=== PATIENT | male | born 1950 | race Caucasian/White ===

== ENCOUNTER 2020-12-24 07:00 | Inpatient (IN) ==
--- NOTE | 2020-12-06 09:38 | PAT Medication Instructions ---
Medication Instructions Date of Service December 06, 2020 Home Medications atorvastatin [Lipitor] 80 mg PO HS cholecalciferol (vitamin D3) 25 mcg (1,000 unit) capsule 1,000 unit PO HS citalopram 40 mg tablet 40 mg PO QAM finasteride 5 mg tablet 5 mg PO QAM multivitamin 1 tab PO HS pantoprazole 40 mg tablet,delayed release 40 mg PO BID sildenafil 100 mg tablet 50 mg PO DAILY PRN tamsulosin 0.4 mg capsule 0.4 mg PO HS oxycodone-acetaminophen 2 tab PO BID PRN DO NOT take the morning of surgery sildenafil 100 mg tablet 50 mg PO DAILY PRN Take morning of surgery With a small sip of water, OTHERWISE NOTHING TO EAT OR DRINK AFTER MIDNIGHT: citalopram 40 mg tablet 40 mg PO QAM finasteride 5 mg tablet 5 mg PO QAM pantoprazole 40 mg tablet,delayed release 40 mg PO BID oxycodone-acetaminophen 2 tab PO BID PRN (okay to take up to 4 hours prior to surgery if needed) Take evening before surgery atorvastatin [Lipitor] 80 mg PO HS cholecalciferol (vitamin D3) 25 mcg (1,000 unit) capsule 1,000 unit PO HS multivitamin 1 tab PO HS pantoprazole 40 mg tablet,delayed release 40 mg PO BID sildenafil 100 mg tablet 50 mg PO DAILY PRN (if needed) tamsulosin 0.4 mg capsule 0.4 mg PO HS oxycodone-acetaminophen 2 tab PO BID PRN (if needed) Other Notes If you have any questions please call us at [phone] or [phone] or [phone] or [phone]
--- NOTE | 2020-12-10 09:28 | Anesthesiology Consultation ---
Date of Service December 10, 2020 Assessment & Plan (1) Encounter for pre-operative examination: - COVID screening: Per assessment on 12/10: Travel screen negative, no known COVID-19 positive contacts or current COVID-19 related symptoms. Patient vaccinated. Surgeon arranging preop COVID testing. Awaiting results. - Possible difficult intubation: d/t decreased cervical extension. Patient with hx of cervical "issues" s/p cervical discectomy Chart Review Chart Review: Acceptable Risk for Surgery (pending preop testing (labs, EKG)) and Patient seen in Pre Admission Testing Teaching & Discussion Pre-Anesthesia Teaching/Discussion Notes: Instructed NPO after midnight before surgery,except medications with 15 cc of water. Medication instructions provided according to the PAT guidelines. History Surgery Operation Date: 12/24/20 07:45 Proposed Procedures p L2-L3 Decompression Fusion, Possible T12-L3, L3-S1 Hardware Removal Spinal Cord Monitoring - Joseph Padilla, DO Height/Weight Height: 5 ft 8 in Weight: 82.7 kg Allergies Allergy/AdvReac Type Severity Reaction Status Date / Time morphine AdvReac Mild Rash, Verified 12/06/20 11:37 itching, hives Medications Home Medications Medication Instructions Recorded Confirmed Last Taken atorvastatin [Lipitor] 80 mg PO HS 05/09/18 12/05/20 04/23/20 17:00 cholecalciferol (vitamin D3) 25 1,000 unit PO HS 04/18/20 12/05/20 04/23/20 17:00 mcg (1,000 unit) capsule citalopram 40 mg tablet 40 mg PO QAM tab 04/18/20 12/05/20 04/24/20 06:30 finasteride 5 mg tablet 5 mg PO QAM 04/18/20 12/05/20 04/23/20 09:00 multivitamin 1 tab PO HS 04/18/20 12/05/20 04/23/20 17:00 pantoprazole 40 mg tablet,delayed 40 mg PO BID tab 04/18/20 12/05/20 04/23/20 18:30 release sildenafil 100 mg tablet 50 mg PO DAILY PRN tab 04/18/20 12/05/20 Unknown tamsulosin 0.4 mg capsule 0.4 mg PO HS 04/18/20 12/05/20 04/23/20 06:30 oxycodone-acetaminophen 2 tab PO BID PRN 12/05/20 12/05/20 Unknown Past Medical History Medical History 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, kidney, acquired DDD (degenerative disc disease) GERD (gastroesophageal reflux disease) controlled Hearing deficit Hyperlipidemia Kidney stones Sciatica Spinal stenosis Exercise / Class Metabolic Activity II 4-5 Yardwork/Stairs/Walk up hill (one FS (no CP, no SOB)) Past Family History Family History Grandfather Prostate cancer Mother Cancer Hypertension Brother Cancer Grandmother (Maternal) Family history of diabetes mellitus Grandfather (Paternal) Family history of esophageal cancer Other No family history of adverse response to anesthesia Past Surgical History Surgical History History of cardiac cath 2016 ([facility]) > no stents History of carpal tunnel surgery of right wrist History of colonoscopy History of colonoscopy with polypectomy History of esophagogastroduodenoscopy (EGD) EGD (04/24/20): MAC at [facility] (hx EGD/dilation) History of lumbar spinal fusion History of open reduction and internal fixation (ORIF) procedure Right wrist (+ hardware) History of repair of right rotator cuff History of tooth extraction Hx of cervical spine surgery Discectomy ("bulging disc") Past Anesthesia History No Hx of Anesthesia Complications and No Family Hx of Anesthesia Complications History of PONV No Hx of PONV and No Hx of Motion Sickness Social History Smoking Status: Former smoker tobacco type: cigarettes Do You Dip or Chew Tobacco: No Smoking End Date: Trying to quit- current 2 cigs/day (tobacco use x 15 years) Hx Alcohol Use: No Hx Substance Use: No Review of Systems Patient denies chest pain, shortness of breath, dyspnea on exertion, fever, chills, cough, wheezing, palpitations. Physical Exam Vital Signs VITALS BP 134/85 P 53 TEMP 97.7 SP02 95%RA RESP 16 PHYSICAL Decreased cervical extension range of motion. Full TMJ range of motion. TMD 3 finger breaths Mallampati Score 3 Dentition: upper full, lower partial denture Lungs: clear throughout to auscultation Cardiac: bradycardia rate, regular rhythm, no murmurs noted Spine: normal Carotid arteries: negative bruit Extremities: no edema Short neck Trimmed timmons Testing Chest X-Ray Date: 12/10/20 FINDINGS: The lungs are clear. Cardiac silhouette is top normal in size. No pleural effusions. No pneumothorax. IMPRESSION: No acute process.
[~2020-12-24 07:00] MED LIST: ACETAMINOPHEN 500 MG TAB PO SCH; CeleBREX 200 MG CAP PO SCH; GABAPENTIN 300 MG CAP PO SCH; SODIUM CHLORIDE 0.9% 1000ML IV SCH; ceFAZolin 2000MG 2,000 MG/15 ML SYR IV SCH
[2020-12-24] MEDS ORDERED: DEXAMETHASONE SOD INJ 4 MG/ML VIAL ONE (08:17)
[2020-12-24] MEDS ORDERED: PROPOFOL IV EMULSION 10 MG/ML 20 ML VIAL IV ONE (08:17)
[2020-12-24] MEDS ORDERED: ONDANSETRON INJ 2 MG/ML 2 ML VIAL ONE (08:17)
[2020-12-24] MEDS ORDERED: LIDOCAINE 2% 2 ML VIAL/AMP(20MG/ML) INFIL ONE (08:17)
[2020-12-24] MEDS ORDERED: MIDAZOLAM HCL 1 MG/ML 2ML VIAL ONE (08:17)
[2020-12-24] MEDS ORDERED: fentaNYL citrate 100 MCG/2 ML VIAL ONE ×2 (08:18→10:07)
[2020-12-24 08:21] LABS: BUN Creatinine Ratio 17.1 (10-20); Calcium 8.5 mg/dl (8.5-10.1); Creatinine Clr Calc Pharmacy 72.2 ml/min; Est GFR (African American) 87.6 ml/min; Est GFR (Non-African American) 75.5 ml/min; Potassium 3.8 mmol/L (3.5-5.1)
--- NOTE | 2020-12-24 08:42 | History & Physical Bridge Note ---
Date of Service December 24, 2020 History & Physical Bridge Note I have examined the patient, reviewed the History & Physical and in the interval since the performance of the History & Physical I have noted the following changes of clinical significance: no changes noted
--- NOTE | 2020-12-24 08:43 | History & Physical Report ---
Date of Service December 24, 2020 Assessment & Plan (1) Neurogenic claudication due to lumbar spinal stenosis: Plan: L2-L3 decompression fusion, possible T12 L3, L3-S1 hardware removal History of Present Illness Chief Complaint: Back and bilateral leg pain Primary Care Provider: NO PCP This is a 70-year-old male well-known to me the presents with chronic persistent back and bilateral leg pain. Failing since course of nonoperative care is here for surgical invention. Allergies Allergy/AdvReac Type Severity Reaction Status Date / Time morphine AdvReac Mild Rash, Verified 12/24/20 07:27 itching, hives Home Medications Medication Instructions Recorded Confirmed Type atorvastatin 80 mg tablet (Lipitor) 80 mg PO HS 05/09/18 12/24/20 History cholecalciferol (vitamin D3) 25 1,000 unit PO HS 04/18/20 12/24/20 History mcg (1,000 unit) capsule citalopram 40 mg tablet 40 mg PO QAM tab 04/18/20 12/24/20 History finasteride 5 mg tablet 5 mg PO QAM 04/18/20 12/24/20 History multivitamin (Daily Multi-Vitamin) 1 tab PO HS 04/18/20 12/24/20 History pantoprazole 40 mg tablet,delayed 40 mg PO BID tab 04/18/20 12/24/20 History release sildenafil 100 mg tablet 50 mg PO DAILY PRN tab 04/18/20 12/24/20 History tamsulosin 0.4 mg capsule 0.4 mg PO HS 04/18/20 12/24/20 History oxycodone-acetaminophen 5 mg-325 2 tab PO BID PRN 12/05/20 12/24/20 History mg tablet Past Med/Surg History Medical History 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, kidney, acquired DDD (degenerative disc disease) GERD (gastroesophageal reflux disease) controlled Hearing deficit Hyperlipidemia Kidney stones Sciatica Spinal stenosis Surgical History History of cardiac cath 2016 ([facility]) > no stents History of carpal tunnel surgery of right wrist History of colonoscopy History of colonoscopy with polypectomy History of esophagogastroduodenoscopy (EGD) EGD (04/24/20): MAC at [facility] (hx EGD/dilation) History of lumbar spinal fusion History of open reduction and internal fixation (ORIF) procedure Right wrist (+ hardware) History of repair of right rotator cuff History of tooth extraction Hx of cervical spine surgery Discectomy ("bulging disc") Family History Grandfather Prostate cancer Mother Cancer Hypertension Brother Cancer Grandmother (Maternal) Family history of diabetes mellitus Grandfather (Paternal) Family history of esophageal cancer Other No family history of adverse response to anesthesia Social History (Updated 12/05/20 @ 12:38 by Palak Adams RN) Smoking Status: Current every day smoker Smoking End Date: Trying to quit- current 2 cigs/day (tobacco use x 15 years); Second Hand Exposure: Yes ( smokes); Do You Dip or Chew Tobacco: No; Hx Alcohol Use: No Hx Substance Use: No Preferred Language: Kenyan Communication Ability: Effective 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 Beliefs That Will Affect Care: None Current Living Situation: Spouse current occupational status: retired Other Information That Helps Us Care for You: No Feels Safe at Home: Yes Safety Concerns: Feels Safe At This Time Assistive Devices: Contacts, Denture - Upper, Denture - Lower, Glasses and Hearing Aid - Bilateral Assistive Devices Comment: PT WILL WEAR GLASSES DOS Physical Exam Physical Exam: Patient is alert and oriented Heart regular rhythm Lungs clear to auscultation Results & Data ([facility]) Vital Signs (Past 12 Hours) Vital Signs Temp Pulse Resp BP Pulse Ox 12/24/20 07:32 36.7 C 60 20 162/94 H 95
[2020-12-24] MEDS ORDERED: ATROPINE SULFATE 0.1 MG/ML 10ML SYR IV PRN (08:51)
[2020-12-24] MEDS ORDERED: HYDROmorphone INJ 2 MG/ML SYR/VIAL IV PRN (08:51)
[2020-12-24] MEDS ORDERED: ONDANSETRON INJ 2 MG/ML 2 ML VIAL IV PRN ×2 (08:51→13:21)
[2020-12-24] MEDS ORDERED: ePHEDrine sulfate 50 MG/ML AMP IV PRN (08:51)
[2020-12-24] MEDS ORDERED: BUPIVACAINE/EPINEPHRINE 0.5% MPF 1:200,000 30 ML VIAL ONE (09:00)
[2020-12-24] MEDS ORDERED: PHENYLEPHRINE 100MCG/ML 5ML SYR ONE (10:17)
[2020-12-24] MEDS ORDERED: ePHEDrine sulfate 50 MG/ML SYR ONE (10:17)
[2020-12-24] MEDS ORDERED: ROCURONIUM BROMIDE 10 MG/ML 5 ML VIAL IV ONE (10:21)
[2020-12-24] MEDS ORDERED: FLOSEAL HEMOSTATIC MATRIX 10ML TOP ONE (10:23)
[2020-12-24] MEDS ORDERED: GLYCOPYRROLATE 0.2 MG/ML VIAL ONE (11:08)
[2020-12-24] MEDS ORDERED: NEOSTIGMINE METHYLSULFATE 1 MG/ML 10ML VIAL ONE (11:08)
[2020-12-24] MEDS ORDERED: KETOROLAC 30 MG/ML VIAL ONE (11:41)
--- NOTE | 2020-12-24 11:44 | Operative Report ---
Post Operative Report Pre & Post Diagnosis Operation Date: 12/24/20 09:05 Pre-Op Diagnosis: Neurogenic claudication due to lumbar spinal stenosis Post-Op Diagnosis: Neurogenic claudication due to lumbar spinal stenosis I identified the patient and participated in the time-out.: Yes Procedure Operation Date: 12/24/20 09:05 Actual Procedures #1 removal of posterior instrumentation L3. #2 exploration of fusion L3-L4. #3 lumbar decompression bilateral medial facetectomies and foraminotomies L1-2 and L2-3. #4 posterior spinal fusion T12-L1, L1-L2 and L2-L3. #5 placement posterior segmental instrumentation T12-L2. #6 interbody fusion L2-L3. #7 placement peek cage 11 x 26 mm at L2-L3. #8 placement locally harvested morselized autograft in the posterior gutters. #9 placement infuse collagen sponge, and master graft in the posterior lateral gutters and I factor and interbody space. Surgeon Joseph Padilla, Claim Taker Radha Bain Estimated Blood Loss 250 Findings Consistent with Post-Op Diagnosis Specimens None Indications This is a 70-year-old male who presents with above-mentioned diagnosis after failing course of nonoperative care is here for the above-mentioned procedure. Description of Procedure Patient was met with identified informed consent obtained. Patient was then taken to the operative suite underwent ablation placed in a prone position the [place] table top Tyler frame. All bony prominences well-padded eyes inspected to ensure no external pressure placed upon the. This point the lumbar spine was prepped and draped in a sterile fashion. Sharp dissection with the assistance of Bovie cartilage from down to and exposing the lamina and transverse processes of T12 L1-L2 and instrumentation L3-L4. Then proceeded to remove the hardware at L3 including the connector and pedicle screw. Explored the fusion mass at L3 on 4 noting it to be mature and intact. Informed complete laminectomy of L2 and L1 including bilateral medial facetectomies and foraminotomies addressing severe spinal stenosis. Pedicle screws were then placed in T12 L1-L2 bilaterally with the assistance of fluoroscopy and by way of a transforaminal approach on right a complete discectomy of L2-L3 was performed endplates curetted to subcortical being bone and 11 x 26 mm peek cage filled with I factor tapped in position. The proper size rods were then contoured and inserted and connected to the previous large by way of barrel connectors. They were locked into place. Transverse processes of T12 L1-L2 and L3 were then burred to subcortical bleeding bone. Infuse collagen sponge mass graft local autograft was placed in the posterior gutters. 15 round LUIS drain inserted. The incision was then closed with 1 Vicryl the fascia 2-0 Vicryl subcutaneously and 4 Monocryl for final skin closure. Steri-Strip sterile dressings placed. Patient will continue PACU stable condition. Please note spinal cord monitoring was last that the procedure no changes noted. Lastly Radha Bain was present at the entire procedure involved the patient positioning complex portions of the surgery and fascial closure. I attest to the content of the Intraoperative Record and any orders documented therein. Any exceptions are noted below.
--- NOTE | 2020-12-24 12:11 | Fluoroscopy Report ---
FL lumbar spine 2-3V CLINICAL HISTORY: L2-L3 DECROMPRESSION FUSION, L3-S1 HARDWARE REMOVAL COMPARISON STUDY: None FLUOROSCOPY TIME: 25 seconds. NUMBER OF FLUOROSCOPIC IMAGES: 3 FINDINGS: 3 fluoroscopic intraoperative images are presented for review which shows screws within the anatomica l region of the pedicles connecting by metallic plates. Also disc spacer is visualized. IMPRESSION: As above. ACT 112: Negative or not required by law. The above report was generated using voice recognition software. It may contain grammatical, syntax o r spelling errors. Electronically signed by: Naomie De Leon DO 12/24/2020 12:10 PM
[2020-12-24] MEDS: fentaNYL citrate 100 MCG/2 ML VIAL IV PRN ×2 (12:14→12:23)
--- NOTE | 2020-12-24 12:48 | Anesthesiology Progress Note ---
Date of Service December 24, 2020 Anesthesia Post Procedure Vital Signs Vital Signs: Temp Pulse Pulse Resp BP BP Pulse Ox 12/24/20 12:45 36.5 C 66 12 143/75 H 98 12/24/20 12:40 63 12 144/72 H 96 12/24/20 12:30 67 18 140/69 97 12/24/20 12:20 61 12 124/94 97 12/24/20 12:10 66 12 146/86 H 100 12/24/20 12:04 36.1 C L 68 12 139/91 100 12/24/20 07:32 36.7 C 60 20 162/94 H 95 Pain Intensity Lower Back: Pain Intensity: 4 Transfer of Care Handoff Completed per policy Notes Mental Status: alert / awake / arousable and participated in evaluation Patient Amnestic to Procedure: Yes Nausea / Vomiting: adequately controlled Pain: adequately controlled Airway Patency, RR, SpO2: stable & adequate BP & HR: stable & adequate Hydration State: stable & adequate Anesthetic Complications: no major complications apparent and Pt Satisfied with anesthetic care
[2020-12-24] MEDS ORDERED: traMADol HCL 50 MG TABLET PO PRN (13:21)
[2020-12-24] MEDS ORDERED: ACETAMINOPHEN 1,000 MG/100 ML VIAL IV PRN (13:21)
[2020-12-24] MEDS ORDERED: ONDANSETRON 4 MG OD TAB PO PRN (13:21)
[2020-12-24] MEDS ORDERED: LORazepam 0.5 MG/1 ML VIAL IV PRN (13:21)
[2020-12-24] MEDS ORDERED: SOD PHOSPHATE/SOD BIPHOSPHATE ENEMA 132 ML BTL PR PRN (13:21)
[2020-12-24] MEDS ORDERED: DO NOT ADMINISTER PNEUMOCOCCAL VACCINE PRN (13:21)
[2020-12-24] MEDS ORDERED: DO NOT ADMINISTER FLU VACCINE PRN (13:21)
[2020-12-24] MEDS ORDERED: LORazepam 0.5 MG TAB PO PRN (13:21)
[2020-12-24] MEDS ORDERED: HYDROmorphone INJ 1 MG/ML SYRINGE IV PRN (13:21)
[2020-12-24] MEDS ORDERED: FAMOTIDINE 20 MG TAB PO PRN (13:21)
[2020-12-24] MEDS ORDERED: hydrOXYzine HCl 25 MG TAB PO PRN (13:21)
[2020-12-24] MEDS ORDERED: MAGNESIUM HYDROXIDE SUSP 30 ML UDC PO PRN (13:21)
[2020-12-24] MEDS ORDERED: diphenhydrAMINE Capsule 25 MG CAP PO PRN (13:21)
[2020-12-24] MEDS ORDERED: METOCLOPRAMIDE HCL INJ 5 MG/ML 2 ML VIAL IV PRN (13:21)
[2020-12-24] MEDS ORDERED: NALOXONE HCL 0.4 MG/1 ML VIAL/CARP IV PRN (13:21)
[2020-12-24] MEDS ORDERED: HYDROmorphone INJ 0.5 MG/0.5 ML SYR IV PRN (13:21)
[2020-12-24] MEDS ORDERED: ACETAMINOPHEN 500 MG TAB PO PRN (13:21)
[2020-12-24] MEDS ORDERED: PROMETHAZINE HCL 12.5 MG in SODIUM CHLORIDE 0.9% 50 ML IV PRN (13:21)
[2020-12-24] MEDS ORDERED: ALUMINUM/MAGNESIUM SUSP 30 ML UDC PO PRN (13:21)
[2020-12-24] MEDS: SODIUM CHLORIDE 0.9% 1000ML 1,000 ML IV SCH ×2 (13:45→23:17)
[2020-12-24] MEDS: ceFAZolin 2000MG 2,000 MG/15 ML SYR IV SCH (17:20)
[2020-12-24] MEDS: DOCUSATE SODIUM/SENNA 50/8.6MG TAB PO SCH (20:04)
[2020-12-24] MEDS: PANTOprazole 40 MG TAB PO SCH (20:04)
[2020-12-24] MEDS: MULTIVITAMIN TAB PO SCH (20:04)
[2020-12-24] MEDS: CHOLECALCIFEROL 1,000 UNITS 25 MCG TAB PO SCH (20:04)
[2020-12-24] MEDS: TAMSULOSIN HCL 0.4 MG CAP PO SCH (20:05)
[2020-12-24] MEDS: ATORVASTATIN 40 MG TAB PO SCH (20:07)
[2020-12-24] MEDS: oxyCODONE HCL IR 5 MG TAB (IMMEDIATE RELEASE) PO PRN (23:20)
[2020-12-25] MEDS: ceFAZolin 2000MG 2,000 MG/15 ML SYR IV SCH (01:04)
[2020-12-25] MEDS: POLYETHYLENE (MIRALAX) 17 GM PACK PO SCH ×3 (05:42→18:40)
[2020-12-25 08:04] LABS: Basophils # (auto) 0.01 K/uL (0-0.2); Basophils % (auto) 0.1 %; Eosinophils # (auto) 0.01 K/uL (0-0.5); Eosinophils % (auto) 0.1 %; Hematocrit (blood only) 33.9 % (42-52); Hemoglobin 11.5 g/dL (14.0-18.0); Immature Granulocytes # (auto) 0.04 K/uL (0.00-0.02); Immature Granulocytes % (auto) 0.2 %; Lymphocytes % (auto) 9.3 %; Mean Corpuscular Hemoglobin 31.2 pg (25-34); Mean Corpuscular Hgb Conc 33.9 g/dL (32-36); Mean Corpuscular Volume 91.9 fL (80-100); Monocytes # (auto) 1.54 K/uL (0.11-0.59); Monocytes % (auto) 9.6 %; Neutrophils # (auto) 12.95 K/uL (1.4-6.5); Neutrophils % (auto) 80.7 %; Platelet Count 183 K/uL (130-400); RDW Coefficient of Variation 12.9 % (11.5-14.5); RDW Standard Deviation 43.6 fL (36.4-46.3); Red Blood Count 3.69 M/uL (4.7-6.1); White Blood Count 16.05 K/uL (4.8-10.8)
[2020-12-25 08:29] LABS: BUN Creatinine Ratio 17.3 (10-20); Calcium 7.9 mg/dl (8.5-10.1); Creatinine Clr Calc Pharmacy 69.5 ml/min; Est GFR (African American) 83.5 ml/min; Est GFR (Non-African American) 72.1 ml/min; Potassium 4.1 mmol/L (3.5-5.1)
[2020-12-25] MEDS: FINASTERIDE 5 MG TAB PO SCH (08:40)
[2020-12-25] MEDS: CITALOPRAM 40 MG TAB PO SCH (08:40)
[2020-12-25] MEDS: PANTOprazole 40 MG TAB PO SCH ×2 (08:41→20:56)
--- NOTE | 2020-12-25 11:02 | Hospitalist Consultation ---
Date of Consultation December 25, 2020 Assessment & Plan (1) Neurogenic claudication due to lumbar spinal stenosis: - Pain management, bowel regimen and DVT ppx per the primary team - PT/OT consults - CBC showing acute blood loss from 15 K to 11.5, no c/o lightheadedhess/dizziness/cardiac complaints. Ambulating without issues. (2) Postoperative anemia: - CBC showing acute blood loss from 15 K to 11.5, no c/o lightheadedhess/dizziness/cardiac complaints. Ambulating without issues. (3) GERD (gastroesophageal reflux disease): - Continue pantoprazole 40 mg BID (4) BPH with obstruction/lower urinary tract symptoms: - Cont flomax daily - Ricketts cath removed this morning. Pt has not yet voided, monitor and bladder scan prn. If retains >450 mL urine straight cath prn. (5) Hyperlipidemia: - Cont atorvastatin 80 mg HS DVT ppx: - teds, scds CODE: Full code Dispo: From home, likely to remain in the hospital x 1-2 days Supervising Physician Co-Signing Physician Notes I have seen and examined the patient and have discussed the case with the provider above. I agree with the assessment and plan as stated. 70 yo M s/p back surgery. Post op anemia noted with higher output into LUIS drain. Doing well, pain well managed with pain medications. No BM yet but is having flatus. Ambulating. Physical exam as noted above. Cont current medical management. Thank you for this consultation. We will continue to follow this patient thro ughout his hospital stay. DO Anup History of Present Illness Reason for Consultation: Medical management Requesting Physician: Dr. Padilla Attending Physician: Joseph Padilla DO History of Present Illness This is a 70-year-old male with PMHx ofHLD, GERD, BPH with LUTS, sciatica, spinal stenosis and GERD history of kidney stones who presents for elective lumbar decompression fusion of T12 through L3 by Dr. Padilla on 12/24/2020. Pt was seen and examined. He was awake and sitting up in his bedside chair. Patient reports that there was some drainage/leaking from his dressing on his lower back earlier today but has been replaced. He reports that there has been quite a bit out of the LUIS drain. Hemoglobin has dropped from 15-11.5 on recheck of a.m. labs, but patient denies any lightheadedness or dizziness. He has been up ambulating and walked 2 laps with therapist earlier today. Overnight Ricketts catheter was in place, removed this morning and he has not yet voided. He is drinking water consistently and is hopeful that he will void soon. Patient has not had a bowel movement yet but also took stool softeners/MiraLAX this morning. He denies any other acute complaints. Patient lives at home with his . Allergies Allergy/AdvReac Type Severity Reaction Status Date / Time morphine AdvReac Mild Rash, Verified 12/24/20 07:27 itching, hives Home Medications Medication Instructions Recorded Confirmed Type atorvastatin 80 mg tablet (Lipitor) 80 mg PO HS 05/09/18 12/24/20 History cholecalciferol (vitamin D3) 25 1,000 unit PO HS 04/18/20 12/24/20 History mcg (1,000 unit) capsule citalopram 40 mg tablet 40 mg PO QAM tab 04/18/20 12/24/20 History finasteride 5 mg tablet 5 mg PO QAM 04/18/20 12/24/20 History multivitamin (Daily Multi-Vitamin) 1 tab PO HS 04/18/20 12/24/20 History pantoprazole 40 mg tablet,delayed 40 mg PO BID tab 04/18/20 12/24/20 History release sildenafil 100 mg tablet 50 mg PO DAILY PRN tab 04/18/20 12/24/20 History tamsulosin 0.4 mg capsule 0.4 mg PO HS 04/18/20 12/24/20 History oxycodone-acetaminophen 5 mg-325 2 tab PO BID PRN 12/05/20 12/24/20 History mg tablet oxycodone 5 mg tablet 5 mg PO Q6H PRN #30 tab 12/24/20 Rx tramadol 50 mg tablet 50 mg PO Q6H PRN #30 tab 12/24/20 Rx Patient History Medical History (Updated 12/25/20 @ 13:14 by Tania Kelly PA-C) 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, kidney, acquired DDD (degenerative disc disease) GERD (gastroesophageal reflux disease) controlled Hearing deficit Hyperlipidemia Kidney stones Sciatica Spinal stenosis Surgical History History of cardiac cath 2017 ([facility]) > no stents History of carpal tunnel surgery of right wrist History of colonoscopy History of colonoscopy with polypectomy History of esophagogastroduodenoscopy (EGD) EGD (04/24/20): MAC at [facility] (hx EGD/dilation) History of lumbar spinal fusion History of open reduction and internal fixation (ORIF) procedure Right wrist (+ hardware) History of repair of right rotator cuff History of tooth extraction Hx of cervical spine surgery Discectomy ("bulging disc") Family History Grandfather Prostate cancer Mother Cancer Hypertension Brother Cancer Grandmother (Maternal) Family history of diabetes mellitus Grandfather (Paternal) Family history of esophageal cancer Other No family history of adverse response to anesthesia Social History (Updated 12/05/20 @ 12:38 by Palak Adams RN) Smoking Status: Current every day smoker Smoking End Date: Trying to quit- current 2 cigs/day (tobacco use x 15 years); Second Hand Exposure: Yes ( smokes); Do You Dip or Chew Tobacco: No; Hx Alcohol Use: No Hx Substance Use: No Preferred Language: Ukrainian Communication Ability: Effective 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 Beliefs That Will Affect Care: None marital status: Current Living Situation: Spouse current occupational status: retired Other Information That Helps Us Care for You: No Feels Safe at Home: Yes Safety Concerns: Feels Safe At This Time Assistive Devices: Denture - Upper, Denture - Lower, Glasses and Walker Assistive Devices Comment: PT WILL WEAR GLASSES DOS Review of Systems Review of Systems: Constitutional: No fever, sweats or chills Eyes: No diplopia, no worsening or blurred vision ENT: normal hearing, no trouble swallowing Respiratory: No cough, sputum, dyspnea at rest or on exertion Cardiovascular: No chest pain, tightness or palpitations Abdomen: No pain, nausea, vomiting, diarrhea or constipation Back: Slight pain, LUIS drain in place : no sensation of inability to empty bladder, not yet voided since removal of ricketts catheter. Musculoskeletal: No joint pain, calf pain, swelling Neurologic: No weakness, numbness/tingling, or balance problems Psychiatric: No anxiety or depression Skin: No rash or itch Physical Exam Physical Exam: General: awake, alert, no apparent distress Head: Normocephalic, atraumatic ENT: PERRL, EOMI, no pharyngeal exudate, mucous membranes moist Chest: Clear to auscultation, on room air, no adventitious breath sounds Cardiac: Regular rate and rhythm, no murmur, no JVD, normal peripheral pulses, good capillary refill Abdominal: NABS x 4 quadrants, soft, nondistended, nontender to palpation, no rebound or guarding Back: Dressing c/d/i, +LUIS drain in place Extremities: Normal inspection, no peripheral edema or erythema, calfs nontender to palpation Psych: Normal mood and affect Neuro: AAO x 3, strength intact bilaterally and rated 5/5, no motor deficits, speech is clear, no peripheral sensory deficits Results & Data Results & Data ([facility]) Vital Signs (Past 12 Hours) Vital Signs Temp Pulse Resp BP Pulse Ox 12/25/20 07:24 36.8 C 62 20 127/66 95 12/25/20 04:02 36.8 C 64 16 136/73 97 Laboratory Results Laboratory Results - last 24 hr 12/24/20 12/25/20 12/25/20 07:33 07:25 07:25 WBC 16.05 H RBC 3.69 L Hgb 11.5 L Hct 33.9 L MCV 91.9 MCH 31.2 MCHC 33.9 RDW Std Deviation 43.6 RDW Coeff of Vanessa 12.9 Plt Count 183 MPV 10.0 Immature Gran % (Auto) 0.2 Neut % (Auto) 80.7 Lymph % (Auto) 9.3 [place] % (Auto) 9.6 Eos % (Auto) 0.1 Baso % (Auto) 0.1 Neut # (Auto) 12.95 H Lymph # (Auto) 1.50 [place] # (Auto) 1.54 H Eos # (Auto) 0.01 Baso # (Auto) 0.01 Immature Gran # (Auto) 0.04 H Sodium 141 Potassium 4.1 Chloride 112 H Carbon Dioxide 24 Anion Gap 6.0 BUN 18 Creatinine 1.05 Est Cr Clr Drug Dosing 69.5 Est GFR ( Amer) 83.5 Est GFR (Non-Af Amer) 72.1 BUN/Creatinine Ratio 17.3 Glucose 130 H Calcium 7.9 L Crossmatch See Detail
--- NOTE | 2020-12-25 12:20 | Orthopedic Progress Note ---
Date of Service December 25, 2020 Assessment & Plan (1) Neurogenic claudication due to lumbar spinal stenosis: Plan: This time continue physical therapy monitor his LUIS output hopefully discharge home in the next few days. Admission and Anticipated Discharge Date Admission Date: December 24, 2020 Subjective Back pain controlled leg pain markedly improved Physical Exam Physical Exam: Patient is good strength testing appears comfortable. Results & Data ([facility]) Vital Signs (Past 12 Hours) Vital Signs Temp Pulse Resp BP Pulse Ox 12/25/20 11:00 36.7 C 67 20 157/76 H 96 12/25/20 07:24 36.8 C 62 20 127/66 95 12/25/20 04:02 36.8 C 64 16 136/73 97
[2020-12-25] MEDS: oxyCODONE HCL IR 5 MG TAB (IMMEDIATE RELEASE) PO PRN ×2 (14:30→18:46)
[2020-12-25] MEDS: ATORVASTATIN 40 MG TAB PO SCH (20:55)
[2020-12-25] MEDS: TAMSULOSIN HCL 0.4 MG CAP PO SCH (20:56)
[2020-12-25] MEDS: MULTIVITAMIN TAB PO SCH (20:56)
[2020-12-25] MEDS: CHOLECALCIFEROL 1,000 UNITS 25 MCG TAB PO SCH (20:56)
[2020-12-25] MEDS: DOCUSATE SODIUM/SENNA 50/8.6MG TAB PO SCH (20:56)
[2020-12-26] MEDS: POLYETHYLENE (MIRALAX) 17 GM PACK PO SCH ×4 (00:52→13:12)
[2020-12-26 06:38] LABS: Basophils # (auto) 0.02 K/uL (0-0.2); Basophils % (auto) 0.2 %; Eosinophils # (auto) 0.03 K/uL (0-0.5); Eosinophils % (auto) 0.2 %; Hemoglobin 11.4 g/dL (14.0-18.0); Immature Granulocytes # (auto) 0.03 K/uL (0.00-0.02); Immature Granulocytes % (auto) 0.2 %; Lymphocytes # (auto) 1.52 K/uL (1.2-3.4); Mean Corpuscular Hemoglobin 30.3 pg (25-34); Mean Corpuscular Hgb Conc 33.5 g/dL (32-36); Mean Corpuscular Volume 90.4 fL (80-100); Monocytes % (auto) 11.1 %; Neutrophils # (auto) 9.63 K/uL (1.4-6.5); Neutrophils % (auto) 76.3 %; Platelet Count 172 K/uL (130-400); Red Blood Count 3.76 M/uL (4.7-6.1); White Blood Count 12.63 K/uL (4.8-10.8)
[2020-12-26] MEDS ORDERED: bisacodyL 10 MG SUPP PR PRN (08:00)
[2020-12-26] MEDS: dexAMETHasone 8 MG in SYRINGE 0 ML IV SCH (09:41)
[2020-12-26] MEDS: FINASTERIDE 5 MG TAB PO SCH (09:42)
[2020-12-26] MEDS: CITALOPRAM 40 MG TAB PO SCH (09:42)
[2020-12-26] MEDS: PANTOprazole 40 MG TAB PO SCH ×2 (09:42→20:55)
[2020-12-26] MEDS: oxyCODONE HCL IR 5 MG TAB (IMMEDIATE RELEASE) PO PRN ×3 (09:43→22:10)
--- NOTE | 2020-12-26 11:54 | Orthopedic Progress Note ---
Date of Service December 26, 2020 Assessment & Plan (1) Neurogenic claudication due to lumbar spinal stenosis: Plan: This time we will continue physical therapy monitor his LUIS operatively discharge home tomorrow Admission and Anticipated Discharge Date Admission Date: December 24, 2020 Subjective Back pain is controlled leg symptoms markedly improved Physical Exam Physical Exam: Patient is comfortable is good strength testing. Results & Data ([facility]) Vital Signs (Past 12 Hours) Vital Signs Temp Pulse Resp BP BP Pulse Ox 12/26/20 07:00 36.8 C 89 20 157/90 H 96 12/25/20 23:54 37.3 C 75 16 136/65 96
[2020-12-26] MEDS ORDERED: oxyCODONE HCL IR 5 MG TAB (IMMEDIATE RELEASE) PO STA (17:44)
--- NOTE | 2020-12-26 18:27 | Hospitalist Progress Note ---
Date of Service December 26, 2020 Assessment & Plan (1) Neurogenic claudication due to lumbar spinal stenosis: Plan: - Pain management, bowel regimen and DVT ppx per the primary team - PT/OT consults -stable H/H, Ambulating without issues. (2) Postoperative anemia: Plan: - asymptomatic, H/H remains stable. (3) GERD (gastroesophageal reflux disease): Plan: - Continue pantoprazole 40 mg BID per home regimen. (4) BPH with obstruction/lower urinary tract symptoms: Plan: - Cont flomax daily (5) Hyperlipidemia: Plan: - Cont atorvastatin 80 mg HS per home regimen. (6) DVT prophylaxis: Plan: SCDs/ambulation Full Dispo-to home when cleared by Orthopedics. [facility] and [facility]ticipated Discharge Date Admission Date: December 24, 2020 Subjective 70-year-old man with neurogenic claudication due to lumbar spinal stenosis status post-lumbar surgery on 12/24. LUIS drain output has decreased and per surgery discharge is hopeful in the next 1 to 2 days. H&H has remained stable today and patient denies any symptoms of lightheaded, chest pain, shortness of breath or other issues. He does continue to have surgical postop pain but is well controlled on oxycodone and Tylenol intermittently. He is tolerating p.o. and otherwise feels well. Review of Systems Review of Systems: All systems were reviewed and negative except as indicated in HPI above. Physical Exam Physical Exam: CONSTITUTIONAL: WNWD, vitals as above, generally well- appearing EYES: normal conjunctivae, no scleral icterus ENT: external ear and nose normal, MMM RESPIRATORY: clear to auscultation bilaterally, no crackles, rales or wheezes, normal respiratory effort CARDIOVASCULAR: regular rate and rhythm, S1 and 2 heard without murmurs, gallops or rubs, no JVD, no peripheral edema GASTROINTESTINAL: normal bowel sounds, soft, nontender, nondistended, no guarding. MUSCULOSKELETAL: strength 5/5 throughout, head is normocephalic and atraumatic, back wtih surgical dressing that is c/d/i, +LUIS drain in place. SKIN: warm and dry NEUROLOGIC: CN 2-12 grossly intact, no sensory deficit, normal cognition, normal speech, no tremor PSYCHIATRIC: alert cooperative and oriented to person, place and time. Euth ymic mood, makes good eye contact, language grossly intact, recent and remote memory grossly intact. Results & Data Results & Data ([facility]) Vital Signs (Past 12 Hours) Vital Signs Temp Pulse Resp BP Pulse Ox 12/26/20 15:00 36.7 C 71 20 159/89 H 96 12/26/20 07:00 36.8 C 89 20 157/90 H 96 Laboratory Results Short CBC 12/26/20 Range/Units 05:40 WBC 12.63 H (4.8-10.8) K/uL Hgb 11.4 L (14.0-18.0) g/dL Hct 34.0 L (42-52) % Plt Count 172 (130-400) K/uL Medications Administered Current Inpatient Medications Acetaminophen (Acetaminophen 500 Mg Tab) 1,000 mg PO Q8H PRN PRN Reason: MILD Pain Scale 1,2,3 & Pre PT Stop: 01/23/21 13:20 Last Admin: 12/26/20 13:17 Dose: 1,000 mg Documented by: Al Hydrox/Mg Hydrox/Simethicone (Aluminum/Magnesium Susp 30 Ml Udc) 30 ml PO Q6H PRN PRN Reason: Dyspepsia Stop: 01/23/21 13:20 Atorvastatin Calcium (Atorvastatin 40 Mg Tab) 80 mg PO HS [facility] Stop: 01/23/21 20:59 Last Admin: 12/25/20 20:55 Dose: 80 mg Documented by: Bisacodyl (Bisacodyl 10 Mg Supp) 10 mg IN DAILY PRN PRN Reason: Constipation Stop: 01/25/21 07:59 Citalopram Hydrobromide (Citalopram 40 Mg Tab) 40 mg PO QAM [facility] Stop: 01/24/21 08:59 Last Admin: 12/26/20 09:42 Dose: 40 mg Documented by: Diphenhydramine HCl (Diphenhydramine Capsule 25 Mg Cap) 25 mg PO Q6H PRN PRN Reason: Allergic Rhinitis/Insomnia Stop: 01/23/21 13:20 Famotidine (Famotidine 20 Mg Tab) 20 mg PO Q12H PRN PRN Reason: Dyspepsia Stop: 01/23/21 13:20 Finasteride (Finasteride 5 Mg Tab) 5 mg PO QAM [facility] Stop: 01/24/21 08:59 Last Admin: 12/26/20 09:42 Dose: 5 mg Documented by: Hydromorphone HCl (Hydromorphone Inj 0.5 Mg/0.5 Ml Syr) 0.5 mg IV Q3H PRN PRN Reason: MOD pain (scale 4-6) & Pre PT Stop: 01/07/21 13:20 Hydromorphone HCl (Hydromorphone Inj 1 Mg/Ml Syringe) 1 mg IV Q3H PRN PRN Reason: severe pain (scale 7-10) Stop: 01/07/21 13:20 Hydroxyzine HCl (Hydroxyzine Hcl 25 Mg Tab) 25 mg PO Q8H PRN PRN Reason: Anxiety Stop: 01/23/21 13:20 Promethazine HCl 12.5 mg/ (Sodium Chloride) 50.5 mls @ 202 mls/hr IV Q6H PRN PRN Reason: Nausea &/or Vomiting Stop: 01/23/21 13:20 Acetaminophen (Ofirmev) 1,000 mg in 100 mls @ 400 mls/hr IV Q8H PRN PRN Reason: Pain Rating 1-3 & Pre PT Stop: 12/27/20 13:20 Lorazepam (Ativan) 0.5 mg in 1 mls @ 1 mls/min IV Q8H PRN PRN Reason: Sedation/Anxiety Stop: 01/23/21 13:20 Dexamethasone 8 mg/ Syringe 2 mls @ 1 mls/min IV DAILY DENIS Stop: 01/25/21 08:59 Last Admin: 12/26/20 09:41 Dose: 1 mls/min Documented by: Influenza Virus Vaccine Quadrival (Do Not Administer Flu Vaccine) 1 ea N/A PRN PRN PRN Reason: Notification Stop: 01/23/21 13:20 Lorazepam (Lorazepam 0.5 Mg Tab) 0.5 mg PO Q8H PRN PRN Reason: sedation/anxiety Stop: 01/23/21 13:20 Magnesium Hydroxide (Magnesium Hydroxide Susp 30 Ml Udc) 30 ml PO Q24H PRN PRN Reason: Constipation Stop: 01/23/21 13:20 Metoclopramide HCl (Metoclopramide Hcl Inj 5 Mg/Ml 2 Ml Vial) 10 mg IV Q6H PRN PRN Reason: Nausea &/or Vomiting Stop: 01/23/21 13:20 Multivitamins (Multivitamin Tab) 1 tab PO HS DENIS Stop: 01/23/21 20:59 Last Admin: 12/25/20 20:56 Dose: 1 tab Documented by: Naloxone HCl (Naloxone Hcl 0.4 Mg/1 Ml Vial/Carp) 0.1 mg IV Q5M PRN PRN Reason: Oversedation/respiratory dep Stop: 01/23/21 13:20 Ondansetron HCl (Ondansetron Inj 2 Mg/Ml 2 Ml Vial) 4 mg IV Q6H PRN PRN Reason: Nausea &/or Vomiting Stop: 01/23/21 13:20 Ondansetron HCl (Ondansetron 4 Mg Od Tab) 4 mg PO Q6H PRN PRN Reason: Nausea Stop: 01/23/21 13:20 Oxycodone HCl (Oxycodone Hcl Ir 5 Mg Tab (Immediate Release)) 5 - 10 mg PO Q4H PRN PRN Reason: Pain & Pre PT Stop: 01/07/21 13:20 Last Admin: 12/26/20 17:49 Dose: 5 mg Documented by: Pantoprazole Sodium (Pantoprazole 40 Mg Tab) 40 mg PO BID DENIS Stop: 01/23/21 20:59 Last Admin: 12/26/20 09:42 Dose: 40 mg Documented by: Pneumococcal Polyvalent Vaccine (Do Not Administer Pneumococcal Vaccine) 1 ea N/A PRN PRN PRN Reason: Notification Stop: 01/23/21 13:20 Senna/Docusate Sodium (Docusate Sodium/Senna 50/8.6mg Tab) 2 tab PO [facility] Stop: 01/23/21 20:59 Last Admin: 12/25/20 20:56 Dose: 2 tab Documented by: Sodium Biphosphate/Sodium Phosphate (Sod Phosphate/Sod Biphosphate Enema 132 Ml Btl) 132 ml IN ONE PRN PRN Reason: Constipation Stop: 01/23/21 13:20 Tamsulosin HCl (Tamsulosin Hcl 0.4 Mg Cap) 0.4 mg PO HS [facility] Stop: 01/23/21 20:59 Last Admin: 12/25/20 20:56 Dose: 0.4 mg Documented by: Tramadol HCl (Tramadol Hcl 50 Mg Tablet) 50 - 100 mg PO Q4H PRN PRN Reason: Moderate-Severe pain & Pre PT Stop: 01/23/21 13:20 Vitamin D (Cholecalciferol 1,000 Units 25 Mcg Tab) 1,000 units PO HS DENIS Stop: 01/23/21 20:59 Last Admin: 12/25/20 20:56 Dose: 1,000 units Documented by:
[2020-12-26] MEDS: CHOLECALCIFEROL 1,000 UNITS 25 MCG TAB PO SCH (20:55)
[2020-12-26] MEDS: MULTIVITAMIN TAB PO SCH (20:55)
[2020-12-26] MEDS: DOCUSATE SODIUM/SENNA 50/8.6MG TAB PO SCH (20:55)
[2020-12-26] MEDS: TAMSULOSIN HCL 0.4 MG CAP PO SCH (20:55)
[2020-12-26] MEDS: ATORVASTATIN 40 MG TAB PO SCH (20:55)
[2020-12-27] MEDS: PANTOprazole 40 MG TAB PO SCH (07:54)
[2020-12-27] MEDS: FINASTERIDE 5 MG TAB PO SCH (07:54)
[2020-12-27] MEDS: oxyCODONE HCL IR 5 MG TAB (IMMEDIATE RELEASE) PO PRN ×2 (07:54→13:46)
[2020-12-27] MEDS: CITALOPRAM 40 MG TAB PO SCH (07:54)
[2020-12-27] MEDS: dexAMETHasone 8 MG in SYRINGE 0 ML IV SCH (07:55)
--- NOTE | 2020-12-27 12:19 | Discharge Summary ---
Date of Service December 27, 2020 Admission HPI Per Admitting Provider This is a 70-year-old male well-known to me the presents with chronic persistent back and bilateral leg pain. Failing since course of nonoperative care is here for surgical invention. Principal Diagnosis Lumbar spinal stenosis with neurogenic claudication Discharge Data Allergies Allergy/AdvReac Type Severity Reaction Status Date / Time morphine AdvReac Mild Rash, Verified 12/24/20 07:27 itching, hives Consultations 12/24/20 13:21 Consult Hospitalist Routine Procedures Performed Operation Date: 12/24/20 09:05 Actual Procedures p L2-L3 Decompression Fusion, Possible T12-L3, Spinal Cord Monitoring - Joseph Padilla DO s L3-S1 Hardware Removal - Joseph Padilla DO Ordered Studies 12/24/20 09:05 [place] lumbar spine 2-3V Routine Hospital Course (1) Neurogenic claudication due to lumbar spinal stenosis: Patient with lumbar decompression fusion trial as well as taken orthopedic for possibly precipitated for 1 he was up in a leg press to postop day #2 postop day 3 pain was well controlled LUIS drain decreasing appropriate. Excellent strength testing. Subsequent discharge home. Discharge orders and instructions found the chart for further review. Total Time Total Time Spent Total Time Spent (In Minutes): 20 minutes Discharge Plan Discharge Items Patient Disposition: Home - Self-Care Reason For Visit: Intervetebral Disc Disorders with Radiculopathy Alyx Discharge Diagnosis: lumbar spinal stenosis with claudication Activity: As commented below Non-emergency contact: Primary Care Provider Call non-emergency contact if: you have any medication questions Follow-up/Referrals: PCP,NO [Physician] - Diet: Regular Addtl Attending Provider Instructions: ACTIVITY RECOMMENDATIONS: SELF CARE INSTRUCTIONS AFTER THORACIC/LUMBAR FUSIONS 1. You may walk to your tolerance. It is good exercise for your legs and back. Expect some back and intermittent leg aches and pains. 2. You may perform "counter-top" level activities (make a sandwich, raul with a project, etc.). 3. No bending or lifting of more than 10 pounds or back twisting of any nature (roll like a log when turning in bed). 4. You may ride in a car for 20-30 minutes at a time. No driving until after your first visit with your doctor. 5. Frequent changes of position and restricting sitting to 30 minutes at a time will help limit the amount of back spasms and stiffness you may experience. 6. You may discontinue the use of ambulatory aids (cane, crutches, etc.) once your strength and confidence allow. 7. You may can filling machine operator the shower and let water strike your incision when you arrive home at least once daily. Do not take a tub bath, sit in a hot tub or go into a swimming pool until after your first recheck in the office. SPECIAL CARE INSTRUCTIONS: VERY IMPORTANT TO READ AND REVIEW A. Your surgical incision has been closed with a cosmetic suture under the skin that will dissolve in about 6 weeks. In 14 days, you can use a pair of clean scissors and cut the suture that is left outside of the skin at the ends of your incision. 1. The small skin tapes can be removed 7 days after surgery if they have not fallen off by that point. 2. You may keep the wound open to air as much as possible to promote healing after post-op day number 5 unless told otherwise by your doctor. 3. If you think the wound looks like it is becoming infected (redness or worsening drainage) and/or you are experiencing fever, chill or worsening back pain and muscle spasms, contact the office so that we may evaluate you as soon as possible. B. Complications are uncommon, but please contact us if you have any signs or symptoms of: 1. wound infection (fever higher than 102.5 degrees F, redness, separation of wound, drainage, or increasing pain from the incision) 2. blood clots in legs (pain, swelling, redness and warmth in legs) 3. urinary tract infection (fever higher than 102.5 degrees F, burning upon urination or increased frequency of urination) 4. nerve problems (inability to walk on your toes or heels, numbness, loss of bowel or bladder control) 5. any other symptoms that concern you C. Please call the office at if you have any concerns or questions about your operation or recovery. D. No smoking! Smoking drastically decreases the chance of a solid fusion. E. Do not take any anti-inflammatory medications (Indocin, Advil, Motrin, Aspirin, Naprosyn, etc.) as these may inhibit the chance of a solid fusion. Tylenol is okay to take for pain. MANAGING PAIN AFTER SPINAL SURGERY 1. Narcotic medication is intended for short-term use and will be provided for surgical pain. Surgical pain usually lasts for a period of 4-6 weeks. Narcotic medication includes Percocet, Vicodin, Darvocet, Tylenol #3 or Lortab. 2. Longer-term pain is more appropriately treated with non-narcotic medication such as Tylenol ES. 3. Muscle spasm is not appropriately treated with narcotics. Muscle relaxers such as Soma, Flexeril or Skelaxin can be used along with Tylenol ES. 4. Remember that we all live with some "aches and pains". This is not unusual or uncommon after an injury or as we get older. a. Back pain is expected and may include muscle spasms for 4 to 6 weeks after surgery. The pain should gradually improve. If the pain worsens for no apparent reason, please contact the office. b. Intermittent leg pain may also be experienced and should not be concerned about unless it worsens for no apparent reason. If so, please contact the office. 5. We will provide appropriate medication within the normal guidelines of their prescribed use. We will also be very cautious and aware of potential abuse and extended duration of patients' medication needs. a. Pain medications are for your comfort and to assist with sleep and rest so that the tissue can heal. They are not provided in order to return to normal activity and should not be used through the day. To do so or worsening pain at night can result from ongoing tissue damage and development of tolerance to the prescribed medicine. 6. Please allow 2-3 days to process refills. Prescriptions will not be mailed but must be picked up at the office. FOLLOW UP VISIT: Keep your scheduled follow-up appointment. Any questions, please call the office at . Pending Studies at Discharge: No Stand-Alone Forms: My [employer], Smoking Cessation Medications and DC Order Prescriptions: New tramadol 50 mg tablet 50 mg PO Q6H PRN (Reason: pain, moderate) Qty: 30 RF: 0 oxycodone 5 mg tablet 5 mg PO Q6H PRN (Reason: pain, severe) Qty: 30 RF: 0 Continued cholecalciferol (vitamin D3) 25 mcg (1,000 unit) capsule 1,000 unit PO HS RF: 0 citalopram 40 mg tablet 40 mg PO QAM RF: 0 finasteride 5 mg tablet 5 mg PO QAM RF: 0 multivitamin [Daily Multi-Vitamin] Tablet 1 tab PO HS RF: 0 sildenafil 100 mg tablet 50 mg PO DAILY PRN (Reason: Sexual Activity) RF: 0 tamsulosin 0.4 mg capsule 0.4 mg PO HS RF: 0 pantoprazole 40 mg tablet,delayed release (DR/EC) 40 mg PO BID RF: 0 atorvastatin [Lipitor] 80 mg Tablet 80 mg PO HS RF: 0 oxycodone-acetaminophen 5-325 mg Tablet 2 tab PO BID PRN (Reason: Pain) RF: 0 Discharge Orders: Discharge Order (Routine); Ordered 12/27/20 Ordered By: Joseph Padilla Admission Data Admit Date/Time: 12/24/20 11:47 Attending Provider: Joseph Padilla Admit Provider: Joseph Padilla Primary Care Provider: Basilio Burnette Other Providers: Aixa Hebert
--- NOTE | 2020-12-27 14:33 | Hospitalist Progress Note ---
Date of Service December 27, 2020 Assessment & Plan (1) Neurogenic claudication due to lumbar spinal stenosis: Plan: - Pain management, bowel regimen and DVT ppx per the primary team - PT/OT consults -stable H/H, Ambulating without issues. (2) Postoperative anemia: Plan: - asymptomatic, H/H stable. (3) GERD (gastroesophageal reflux disease): Plan: - Continue pantoprazole 40 mg BID per home regimen. (4) BPH with obstruction/lower urinary tract symptoms: Plan: - Cont flomax daily (5) Hyperlipidemia: Plan: - Cont atorvastatin 80 mg HS per home regimen. (6) DVT prophylaxis: Plan: SCDs/ambulation Full Dispo-to home when cleared by Orthopedics. [facility] He[facility] and Anticipated Discharge Date Admission Date: December 24, 2020 Subjective 70-year-old man with neurogenic claudication due to lumbar spinal stenosis status post-lumbar surgery on 12/24. Feeling well. Adams well managed. Review of Systems Review of Systems: All systems were reviewed and negative except as indicated in HPI above. Physical Exam Physical Exam: CONSTITUTIONAL: WNWD, vitals as above, generally well- appearing EYES: normal conjunctivae, no scleral icterus ENT: external ear and nose normal, MMM RESPIRATORY: clear to auscultation bilaterally, no crackles, rales or wheezes, normal respiratory effort CARDIOVASCULAR: regular rate and rhythm, S1 and 2 heard without murmurs, gallops or rubs, no JVD, no peripheral edema GASTROINTESTINAL: normal bowel sounds, soft, nontender, nondistended, no guarding. MUSCULOSKELETAL: strength 5/5 throughout, head is normocephalic and atraumatic, back with surgical dressing that is c/d/i, +LUIS drain in place. SKIN: warm and dry NEUROLOGIC: CN 2-12 grossly intact, no sensory deficit, normal cognition, normal speech, no tremor PSYCHIATRIC: alert cooperative and oriented to person, place and time. Euthymic mood, makes good eye contact, language grossly intact, recent and remote memory grossly intact. Results & Data Results & Data ([facility]) Vital Signs (Past 12 Hours) Vital Signs Temp Pulse Pulse Resp BP BP Pulse Ox 12/27/20 12:18 36.7 C 66 64 20 136/65 154/84 H 95 12/27/20 07:00 36.7 C 64 20 154/84 H 95
== END 2020-12-27 14:29 | disposition home or self-care (01) | DRG 454 ==
LOC: ASU 07:00 → PACUINP 11:47 → 3E 13:15